=== PATIENT | male | born 1955 | race Caucasian/White ===

== ENCOUNTER 2017-02-16 10:01 | Observation (INO) | payer BC ==
[~2017-02-16] VITALS: Ht 181.6 cm; Wt 145.6 kg
[~2017-02-16 10:01] MED LIST: AMBIEN10 MG PO; ARTIFICIAL TEAR1510 BOTH EYES; LIBRIUM10 MG PO; LIPITOR80 MG PO; PROTONIX40 MG PO; TRAZODONE HCL50 MG PO; ZESTRIL5 MG PO
[2017-02-16 11:17] LABS: MCH 30.5 PG (29.0-34.0); MCHC 32.9 G/DL (30.0-36.0); MCV 92.7 FL (86-99); MEAN PLAT.VOLUME 9.8 uM^3 (9.0-12.4); PLATELET COUNT 193 K/uL (156-360); RBC DIS.WIDTH-CV 13.4 % (11.8-14.6); RBC DIS.WIDTH-SD 45.7 % (39-53); RED BLOOD COUNT 5.18 M/uL (4.00-5.50); WHITE BLOOD COUNT 6.7 K/uL (4.1-10.2)
[2017-02-16 11:24] LABS: CHLORIDE 99 mEq/L (99-109); POTASSIUM 3.8 mEq/L (3.7-5.4); SODIUM 144 mEq/L (136-147)
[2017-02-16 11:26] LABS: GLUCOSE 78 mg/dL (70-99)
[2017-02-16 11:28] LABS: ANION GAP 22 MEQ/L (2-14)
[2017-02-16 11:29] LABS: SERUM ETHYL ALCOHOL 295 mg/dL
[2017-02-16 11:30] LABS: GFR ESTIMATE (CALCULATED) > 59 mL/min/
[2017-02-16 11:31] LABS: UREA NITROGEN (BUN) 11 mg/dL (9-23)
[2017-02-16 11:55] LABS: MAGNESIUM 2.2 mg/dL (1.3-2.7)
[2017-02-16 11:59] LABS: TOTAL BILIRUBIN 0.8 mg/dL (0.0-1.0)
[2017-02-16 12:00] LABS: ALKALINE PHOSPHATASE 64 IU/L (3-129)
[2017-02-16 12:02] LABS: DIRECT BILIRUBIN 0.4 mg/dL (0.0-0.3)
[2017-02-16 12:17] LABS: ADD MEDTOX COMMENT Y; AMPHETAMINE NEGATIVE (500 ng/mL); BARBITURATES NEGATIVE (200 ng/mL); BENZODIAZEPINES PRESUMPTIVE POSITIVE (150 ng/mL); COCAINE NEGATIVE (150 ng/mL); INTERNAL CONTROLS VALID? YES; METHADONE NEGATIVE (200 ng/mL); METHAMPHETAMINE NEGATIVE (500 ng/mL); OPIATES (MORPHINE) NEGATIVE (100 ng/mL); OXYCODONE NEGATIVE (100 ng/mL); PHENCYCLIDINE NEGATIVE (25 ng/mL); PROPOXYPHENE NEGATIVE (300 ng/mL); THC CANNABINOIDS NEGATIVE (50 ng/mL); TRICYCLIC ANTIDEPRESSANTS NEGATIVE (300 ng/mL)
[2017-02-16 13:01] LABS: BENZODIAZEPINES QUANT VALUE 0 NG/ML; BENZODIAZEPINES, URINE SCREEN Negative (200 ng/mL)
[2017-02-16] MEDS ORDERED: ATIVAN1 MG PO (19:18)
[2017-02-16] MEDS ORDERED: TRAZODONE HCL50 MG PO (20:05)
[2017-02-16] MEDS ORDERED: CARDIZEM CD,CA180 MG PO (20:06)
[2017-02-16] MEDS ORDERED: BENADRYL50 MG PO (20:07)
[2017-02-16 23:11] VITALS: BP 182/87
[2017-02-17 00:43] VITALS: BP 167/76
[2017-02-17 04:06] VITALS: BP 173/86
[2017-02-17 06:39] LABS: ALKALINE PHOSPHATASE 40 IU/L (3-129); DIRECT BILIRUBIN 0.2 mg/dL (0.0-0.3); TOTAL BILIRUBIN 1.3 MG/DL (0.0-1.0)
[2017-02-17 07:56] VITALS: BP 158/78
[2017-02-17] MEDS ORDERED: VITAMIN B12-FO1 EACH PO (09:06)
[2017-02-17] MEDS ORDERED: CHLORDIAZEPOXID25 MG PO (09:06)
[2017-02-17] MEDS ORDERED: THERAGRAN1 TABLET PO (09:06)
[2017-02-17 12:10] VITALS: BP 139/70
== END 2017-02-17 13:03 | disposition home or self-care (01) ==
LOC: EME 10:01 → EDOF 22:06 → 5WEST 22:06 → EDOF 22:06 → 5WEST 22:51
PROVIDERS: Physician Assistant Medical
DX: F10.239 Alcohol dependence with withdrawal, unspecified (principal); F32.9 Major depressive disorder, single episode, unspecified; I10 Essential (primary) hypertension; G47.33 Obstructive sleep apnea (adult) (pediatric); E66.9 Obesity, unspecified; Z68.41 Body mass index [BMI] 40.0-44.9, adult; E78.5 Hyperlipidemia, unspecified; Z81.1 Family history of alcohol abuse and dependence; Z80.3 Family history of malignant neoplasm of breast; Z82.3 Family history of stroke; Z88.0 Allergy status to penicillin
CPT/HCPCS: 80048; 80076; 83735; 84443; 84999; 85027; 90839; 99281; 99285; G0378; G0480; J0360; J2060; J3360; J3411; J3475; J7030